=== PATIENT | female | born 1965 | race African-American/Black ===

== ENCOUNTER 2021-02-19 18:34 | Inpatient (IN) | payer MEDICARE ==
[~2021-02-19] VITALS: Ht 172.7 cm; Wt 98.9 kg
--- NOTE | 2021-02-19 19:11 | NUR ---
GPS: RECEIVED PT DIRECTLY FROM [facility] FROM [facility]. ADMITTED THROUGH THE SERVICE OF DR GONZALES AND MADE AWARE. PT ALERT AND ORIENTED X3-4. DENIES ANY PAIN OR DISCOMFORT. PT IS RELAX AND COOPERATIVE OF NOW. PT WEIGHS 218LBS AND 5'8'' IN HEIGHT. PT REQUESTING FOR HALDOL INJECTION FOR HER TO SLEEP TONIGHT. COVID TEST (-) NEGATIVE DATED 02/18/21 AT [place]. ON FULL CODE WITH ALLERGY TO AMOXICILLIN AND GLIPIZIDE. PT AMBULATORY AND CONTINENT.
[2021-02-19 20:00] VITALS: BP 148/70
[2021-02-19] MEDS ORDERED: TEMAZEPAM 7.5 MG CAPSULE PO PRN (20:15)
[2021-02-19] MEDS ORDERED: MAGNESIUM HYDROXIDE 30 ML LIQUID UDC PO PRN (20:15)
[2021-02-19] MEDS ORDERED: MAG HYDROX/AL HYDROX/SIMETH 30 ML LIQUID UDC PO PRN (20:15)
[2021-02-19] MEDS: LORAZEPAM 1 MG TABLET PO PRN (21:58)
[2021-02-20] MEDS ORDERED: INSU3INS6 SQ (03:13)
[2021-02-20] MEDS ORDERED: MELA3TAB41 PO (03:13)
[2021-02-20] MEDS ORDERED: MONT10TA22 PO (03:13)
[2021-02-20] MEDS ORDERED: METF-494 PO (03:13)
[2021-02-20] MEDS ORDERED: ATOR80TA PO (03:13)
[2021-02-20] MEDS ORDERED: OMEP20TA20 PO (03:13)
[2021-02-20] MEDS ORDERED: DIVA500T4 PO (03:13)
[2021-02-20] MEDS ORDERED: MEMA10TA PO (03:13)
[2021-02-20] MEDS ORDERED: LISI1TAB29 PO (03:13)
[2021-02-20] MEDS ORDERED: ARIP30TA3 PO (03:13)
[2021-02-20] MEDS ORDERED: LINA290C PO (03:13)
--- NOTE | 2021-02-20 06:24 | NUR ---
Pt awake at this time, no s/s of distress. No c/o pain. Cooperative with the admission process. Copy of the advisement and Patients' Rights Handbook provided. Safety precautions in place. Needs attended to in a timely manner. Son Carlos notified of pt's admission to GPS, acknowledged information.
[2021-02-20 07:30] VITALS: BP 117/40
--- NOTE | 2021-02-20 07:30 | NUR ---
recd patient asleep easily arousable to verbal stimuli, affect labile and mood dis organized. Denied any self harm and qany harm to to others. patient c/o feeling anxious by patient , Ativan 1mg po with some effect after 15 minutes. Patient dis shelved and poor insight . Oral intake qs and requesting in between meals snack. .
[2021-02-20] MEDS ORDERED: METF-440 PO (07:58)
[2021-02-20] MEDS ORDERED: METFORMIN HCL 500 MG TABLET PO SCH (09:00)
[2021-02-20 09:15] LABS: BILIRUBIN,TOTAL 0.2 mg/dL (0.2-1.0); CREATININE 0.7 mg/dL (0.6-1.3); TOTAL PROTEIN, SERUM 7.1 g/dL (6.4-8.2)
[2021-02-20] MEDS: METFORMIN HCL 500 MG TABLET PO SCH ×2 (09:59→17:07)
[2021-02-20] MEDS: MEMANTINE HCL 10 MG TABLET PO SCH ×2 (09:59→16:33)
[2021-02-20] MEDS: HYDROCHLOROTHIAZIDE 25 MG TABLET PO SCH (10:00)
[2021-02-20] MEDS: PANTOPRAZOLE SODIUM 40 MG TABLET.DR PO SCH (10:00)
[2021-02-20] MEDS: LISINOPRIL 20 MG TABLET PO SCH (10:01)
[2021-02-20] MEDS ORDERED: DEXTROSE 50% 50 ML DISP.SYRIN IV PRN (12:15)
[2021-02-20] MEDS: LORAZEPAM 1 MG TABLET PO PRN (13:15)
[2021-02-20 15:15] LABS: *BILIRUBIN,URIN NEGATIVE (NEGATIVE); *BLOOD, URINE NEGATIVE (NEGATIVE); *CLARITY,URINE CLEAR (CLEAR); *COLOR,URINE LIGHT YELLOW (YELLOW); *KETONES,URINE NEGATIVE (NEGATIVE); *UROBILINOGEN,URINE 0.2 E.U./dl (NORMAL); LEUKOCYTE ESTERASE ,URINE NEGATIVE (NEGATIVE); NITRITE, URINE NEGATIVE (NEGATIVE); UGLUCOSE TRACE (NEGATIVE)
[2021-02-20 15:30] LABS: BACTERIA,URINE FEW /HPF (NONE SEEN); RBC,URINE 0-3 /HPF (0-3); SQUAMOUS EPITHELIAL CELL,UR FEW /HPF (NONE SEEN); WBC,URINE 0-3 /HPF (0-3)
--- NOTE | 2021-02-20 15:48 | NUR ---
urine specmen collected and sent to lab
[2021-02-20 16:00] VITALS: BP 134/69
[2021-02-20] MEDS: BLOOD SUGAR DIAGNOSTIC 1 EACH STRIP VI SCH ×2 (16:31→21:17)
[2021-02-20] MEDS: INSULIN REGULAR, HUMAN 300 UNIT/3 ML VIAL SQ PRN ×2 (16:34→21:15)
[2021-02-20] MEDS: DIVALPROEX ER 500 MG TAB.SR.24H PO SCH (17:58)
[2021-02-20 20:00] VITALS: BP 145/69
[2021-02-20] MEDS: ATORVASTATIN 40 MG TABLET PO SCH (21:14)
[2021-02-20] MEDS: MONTELUKAST SODIUM 10 MG TABLET PO SCH (21:14)
[2021-02-20] MEDS: risperiDONE 2 MG TABLET PO SCH (21:14)
[2021-02-20] MEDS: INSULIN GLARGINE,HUM 300 UNITS/3 ML CARTRIDGE SQ SCH (21:16)
[2021-02-21] MEDS: ACETAMINOPHEN 325 MG TABLET PO PRN (05:21)
[2021-02-21] MEDS: PANTOPRAZOLE SODIUM 40 MG TABLET.DR PO SCH (06:44)
[2021-02-21] MEDS: BLOOD SUGAR DIAGNOSTIC 1 EACH STRIP VI SCH ×4 (06:44→21:09)
[2021-02-21 07:30] VITALS: BP 117/63
[2021-02-21] MEDS: METFORMIN HCL 500 MG TABLET PO SCH ×2 (09:19→17:49)
[2021-02-21] MEDS: DIVALPROEX ER 500 MG TAB.SR.24H PO SCH ×2 (09:19→17:49)
[2021-02-21] MEDS: risperiDONE 2 MG TABLET PO SCH ×2 (09:20→21:09)
[2021-02-21] MEDS: MEMANTINE HCL 10 MG TABLET PO SCH ×2 (09:20→17:50)
[2021-02-21] MEDS: LISINOPRIL 20 MG TABLET PO SCH (09:20)
[2021-02-21] MEDS: SERTRALINE HCL 50 MG TABLET PO SCH (09:20)
[2021-02-21] MEDS: HYDROCHLOROTHIAZIDE 25 MG TABLET PO SCH (09:22)
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
--- NOTE | 2021-02-21 11:12 | NUR ---
LUIZ Initial Discharge Plan: Pt currently resides at [address] [place] [address] ([phone]). LUIZ will continue to work with pt, family and MD to ensure a safe and proper discharge plan.
[2021-02-21] MEDS: INSULIN REGULAR, HUMAN 300 UNIT/3 ML VIAL SQ PRN ×2 (13:24→21:11)
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
[2021-02-21 16:31] VITALS: BP 148/71
--- NOTE | 2021-02-21 17:00 | NUR ---
Gps/Air Operations Manager- Had been quiet, redirectable, compliant with routine meds, safety reviewed, cooperative with staff .Patient was put to room 137-B earlier today awaiting results from Covid test , came out negative, patient was put back in previous room
[2021-02-21 20:00] VITALS: BP 135/53
[2021-02-21] MEDS: MONTELUKAST SODIUM 10 MG TABLET PO SCH (21:08)
[2021-02-21] MEDS: ATORVASTATIN 40 MG TABLET PO SCH (21:09)
[2021-02-21] MEDS: INSULIN GLARGINE,HUM 300 UNITS/3 ML CARTRIDGE SQ SCH (21:12)
[2021-02-22] MEDS: LORAZEPAM 1 MG TABLET PO PRN (00:16)
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
[2021-02-22] MEDS: PANTOPRAZOLE SODIUM 40 MG TABLET.DR PO SCH (06:54)
[2021-02-22] MEDS: BLOOD SUGAR DIAGNOSTIC 1 EACH STRIP VI SCH ×4 (06:55→20:14)
[2021-02-22 07:30] VITALS: BP_SYST 128; BP_SYST 154; BP_DIAS 68; BP_DIAS 78
[2021-02-22] MEDS: METFORMIN HCL 500 MG TABLET PO SCH ×2 (08:17→16:47)
[2021-02-22] MEDS: SERTRALINE HCL 50 MG TABLET PO SCH (08:18)
[2021-02-22] MEDS: risperiDONE 2 MG TABLET PO SCH ×2 (08:18→20:19)
[2021-02-22] MEDS: DIVALPROEX ER 500 MG TAB.SR.24H PO SCH ×2 (08:18→16:38)
[2021-02-22] MEDS: LISINOPRIL 20 MG TABLET PO SCH (08:19)
[2021-02-22] MEDS: MEMANTINE HCL 10 MG TABLET PO SCH ×2 (08:19→16:38)
[2021-02-22] MEDS: HYDROCHLOROTHIAZIDE 25 MG TABLET PO SCH (08:20)
[2021-02-22] MEDS: INSULIN REGULAR, HUMAN 300 UNIT/3 ML VIAL SQ PRN ×4 (08:24→20:21)
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
[2021-02-22 16:20] VITALS: BP 147/46
[2021-02-22 20:00] VITALS: BP 136/47
[2021-02-22] MEDS: INSULIN GLARGINE,HUM 300 UNITS/3 ML CARTRIDGE SQ SCH (20:18)
[2021-02-22] MEDS: ATORVASTATIN 40 MG TABLET PO SCH (20:19)
[2021-02-22] MEDS: MONTELUKAST SODIUM 10 MG TABLET PO SCH (20:19)
[2021-02-22] MEDS: MELATONIN 3 MG TABLET PO PRN (20:19)
[2021-02-23] MEDS: BLOOD SUGAR DIAGNOSTIC 1 EACH STRIP VI SCH ×4 (05:54→19:51)
[2021-02-23] MEDS: PANTOPRAZOLE SODIUM 40 MG TABLET.DR PO SCH (06:07)
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
[2021-02-23 08:10] VITALS: BP 124/50
[2021-02-23] MEDS: DIVALPROEX ER 500 MG TAB.SR.24H PO SCH ×2 (08:47→17:11)
[2021-02-23] MEDS: LORAZEPAM 1 MG TABLET PO PRN ×2 (08:47→20:29)
[2021-02-23] MEDS: METFORMIN HCL 500 MG TABLET PO SCH ×2 (08:47→17:11)
[2021-02-23] MEDS: LISINOPRIL 20 MG TABLET PO SCH (08:48)
[2021-02-23] MEDS: MEMANTINE HCL 10 MG TABLET PO SCH ×2 (08:48→17:12)
[2021-02-23] MEDS: SERTRALINE HCL 50 MG TABLET PO SCH (08:48)
[2021-02-23] MEDS: risperiDONE 2 MG TABLET PO SCH ×2 (08:48→20:28)
[2021-02-23] MEDS: HYDROCHLOROTHIAZIDE 25 MG TABLET PO SCH (09:35)
[2021-02-23] MEDS ORDERED: diphenhydrAMINE 50 MG/1 ML VIAL IM ONE (12:00)
[2021-02-23] MEDS ORDERED: LORAZEPAM 2 MG/1 ML VIAL IM ONE (12:00)
[2021-02-23] MEDS ORDERED: HALOPERIDOL LACTATE 5 MG/1 ML VIAL IM ONE (12:00)
[2021-02-23] MEDS: INSULIN REGULAR, HUMAN 300 UNIT/3 ML VIAL SQ PRN ×3 (12:24→19:54)
[2021-02-23 15:28] VITALS: BP 129/50
[2021-02-23 15:36] VITALS: BP 139/62
[2021-02-23 16:08] VITALS: BP 139/62
--- NOTE | 2021-02-23 19:03 | NUR ---
PATIENT REMAINS DELUSIONAL AND IMPAIRED THINKING, NEEDS MONITORING, sON CALLED AND ASKED THAT PATIENT NOT HAVE PHONE TO CALL THEM , THEY WILL CALL HER SON bety, CONTINUE TO MONITOR FOR SAFETY.
[2021-02-23] MEDS: INSULIN GLARGINE,HUM 300 UNITS/3 ML CARTRIDGE SQ SCH (19:52)
[2021-02-23 20:05] VITALS: BP 116/60
[2021-02-23] MEDS: MONTELUKAST SODIUM 10 MG TABLET PO SCH (20:28)
[2021-02-23] MEDS: ATORVASTATIN 40 MG TABLET PO SCH (20:28)
[2021-02-23] MEDS: MELATONIN 3 MG TABLET PO PRN (20:29)
[2021-02-23] MEDS: ACETAMINOPHEN 325 MG TABLET PO PRN (22:24)
[2021-02-24] MEDS: LORAZEPAM 1 MG TABLET PO PRN ×2 (05:06→20:14)
[2021-02-24] MEDS: PANTOPRAZOLE SODIUM 40 MG TABLET.DR PO SCH (06:07)
[2021-02-24] MEDS: BLOOD SUGAR DIAGNOSTIC 1 EACH STRIP VI SCH ×4 (06:08→20:09)
[2021-02-24 07:40] VITALS: BP 143/65
[2021-02-24] MEDS: DIVALPROEX ER 500 MG TAB.SR.24H PO SCH ×2 (08:20→16:41)
[2021-02-24] MEDS: METFORMIN HCL 500 MG TABLET PO SCH ×2 (08:21→17:00)
[2021-02-24] MEDS: SERTRALINE HCL 50 MG TABLET PO SCH (08:21)
[2021-02-24] MEDS: risperiDONE 2 MG TABLET PO SCH ×2 (08:22→20:15)
[2021-02-24] MEDS: LISINOPRIL 20 MG TABLET PO SCH (08:22)
[2021-02-24] MEDS: MEMANTINE HCL 10 MG TABLET PO SCH ×2 (08:23→16:41)
[2021-02-24] MEDS: HYDROCHLOROTHIAZIDE 25 MG TABLET PO SCH (08:23)
[2021-02-24] MEDS: INSULIN REGULAR, HUMAN 300 UNIT/3 ML VIAL SQ PRN ×4 (08:29→20:14)
--- NOTE | 2021-02-24 15:00 | NUR ---
Received patient sleeping in her room. A/O X 2 to person, place. Pt. affect is disorganized, labile, restless, demanding at times. Blood glucose is 255, 6 units of regular insulin given per sliding scale. Compliant with medications. Ambulates independently. Self care. Patient is encourage to verbalize concerns. Fall and safety precautions implemented.
[2021-02-24 16:10] VITALS: BP 142/67
--- NOTE | 2021-02-24 17:55 | NUR ---
Patient blood glucose is 151, 2 units of regular insulin given per sliding scale.
[2021-02-24] MEDS: ACETAMINOPHEN 325 MG TABLET PO PRN (18:35)
--- NOTE | 2021-02-24 18:38 | NUR ---
Patient is given Tylenol 650 mg at 18:36 for headache, will be monitored for effectiveness.
[2021-02-24 20:06] VITALS: BP 144/60
[2021-02-24] MEDS: INSULIN GLARGINE,HUM 300 UNITS/3 ML CARTRIDGE SQ SCH (20:12)
[2021-02-24] MEDS: ATORVASTATIN 40 MG TABLET PO SCH (20:14)
[2021-02-24] MEDS: MONTELUKAST SODIUM 10 MG TABLET PO SCH (20:14)
[2021-02-24] MEDS: MELATONIN 3 MG TABLET PO PRN (20:15)
--- NOTE | 2021-02-25 04:05 | NUR ---
GPS Note: Received patient at the start of the shift, wandering up and down the francis with a blank stare. This patient gets disoriented more and more as the night progress. However this patient has been calm with no signs of aggressive behavior noted . This chart writer educated and reinforced the need for diabetic diet compliance d/t the blood glucose trending on the elevated side. The patient continues to eat anything available and in large portions. During the night the patient came out into the hallway without any pants on. The bed was saturated with urine from an incontinent episode. Frequent rounding and reorientation provided throughout the shift. Safety Stratiges in place, no acute episodes or distress.
[2021-02-25] MEDS: BLOOD SUGAR DIAGNOSTIC 1 EACH STRIP VI SCH ×4 (05:34→21:07)
[2021-02-25] MEDS: PANTOPRAZOLE SODIUM 40 MG TABLET.DR PO SCH (05:34)
[2021-02-25 07:33] VITALS: BP 119/57
[2021-02-25] MEDS: DIVALPROEX ER 500 MG TAB.SR.24H PO SCH ×2 (08:09→16:46)
[2021-02-25] MEDS: LISINOPRIL 20 MG TABLET PO SCH (08:10)
[2021-02-25] MEDS: SERTRALINE HCL 50 MG TABLET PO SCH (08:10)
[2021-02-25] MEDS: MEMANTINE HCL 10 MG TABLET PO SCH ×2 (08:11→16:46)
[2021-02-25] MEDS: METFORMIN HCL 500 MG TABLET PO SCH ×2 (08:12→17:15)
[2021-02-25] MEDS: HYDROCHLOROTHIAZIDE 25 MG TABLET PO SCH (08:13)
[2021-02-25] MEDS: risperiDONE 2 MG TABLET PO SCH ×2 (08:24→20:58)
[2021-02-25] MEDS: INSULIN REGULAR, HUMAN 300 UNIT/3 ML VIAL SQ PRN ×4 (08:35→21:00)
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
--- NOTE | 2021-02-25 10:41 | NUR ---
Patient court hearing was held today at 10:30 am. Judge Angeles, patient's rights Shanda and Eleni were participants of the hearing. Audio Specialist approved to continue 14 days hold for this patient.
--- NOTE | 2021-02-25 15:20 | NUR ---
Received patient awake in her room. A/O X 2 to person, place. Pt. affect is withdrawn, calm, quiet, cooperative, depressed. Compliant with medications. Blood glucose 282, 6 units of regular insulin given per sliding scale. Ambulates independently. Emotional support provided. Fall and safety precautions implemented.
[2021-02-25 16:13] VITALS: BP 147/52
[2021-02-25 19:51] VITALS: BP 118/58
[2021-02-25] MEDS: MONTELUKAST SODIUM 10 MG TABLET PO SCH (20:56)
[2021-02-25] MEDS: ATORVASTATIN 40 MG TABLET PO SCH (20:56)
[2021-02-25] MEDS: INSULIN GLARGINE,HUM 300 UNITS/3 ML CARTRIDGE SQ SCH (21:02)
[2021-02-26] MEDS: PANTOPRAZOLE SODIUM 40 MG TABLET.DR PO SCH (06:48)
[2021-02-26] MEDS: BLOOD SUGAR DIAGNOSTIC 1 EACH STRIP VI SCH ×4 (06:52→20:56)
[2021-02-26 07:30] VITALS: BP 116/41
[2021-02-26] MEDS: DIVALPROEX ER 500 MG TAB.SR.24H PO SCH ×2 (08:45→16:40)
[2021-02-26] MEDS: METFORMIN HCL 500 MG TABLET PO SCH ×2 (08:45→17:04)
[2021-02-26] MEDS: risperiDONE 2 MG TABLET PO SCH ×2 (08:45→20:53)
[2021-02-26] MEDS: SERTRALINE HCL 50 MG TABLET PO SCH (08:47)
[2021-02-26] MEDS: MEMANTINE HCL 10 MG TABLET PO SCH ×2 (08:47→16:40)
[2021-02-26] MEDS: HYDROCHLOROTHIAZIDE 25 MG TABLET PO SCH (08:48)
[2021-02-26] MEDS: LISINOPRIL 20 MG TABLET PO SCH (08:49)
[2021-02-26] MEDS: INSULIN REGULAR, HUMAN 300 UNIT/3 ML VIAL SQ PRN ×3 (08:53→20:58)
[2021-02-26] MEDS: ACETAMINOPHEN 325 MG TABLET PO PRN (10:10)
--- NOTE | 2021-02-26 14:42 | NUR ---
Received patient awake in her room. A/O X 2 to person, place. Pt. affect is withdrawn, depressed, preoccupied, cooperative, fixated on being discharge home. Compliant with medications. Ambulates without assistance. Blood glucose is 255, 6 units of regular insulin given per sliding scale. Tylenol 650 mg is given at 14:24 for headache, effective. Self care. Patient is encourage to vent feelings and emotions. Fall and safety precautions implemented.
[2021-02-26 16:00] VITALS: BP 128/57
[2021-02-26] MEDS: NUTRISOURCE FIBER 4 GM PACKET PO SCH (17:48)
[2021-02-26 20:00] VITALS: BP 123/38
[2021-02-26] MEDS: ATORVASTATIN 40 MG TABLET PO SCH (20:53)
[2021-02-26] MEDS: MONTELUKAST SODIUM 10 MG TABLET PO SCH (20:54)
[2021-02-26] MEDS: INSULIN GLARGINE,HUM 300 UNITS/3 ML CARTRIDGE SQ SCH (20:59)
[2021-02-27] MEDS: LORAZEPAM 1 MG TABLET PO PRN (00:48)
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
[2021-02-27] MEDS: PANTOPRAZOLE SODIUM 40 MG TABLET.DR PO SCH (06:46)
[2021-02-27] MEDS: BLOOD SUGAR DIAGNOSTIC 1 EACH STRIP VI SCH ×4 (06:46→20:10)
--- NOTE | 2021-02-27 07:32 | NUR ---
patient slept for approx 3 hrs through the night. she continue fixed on calling her family in the middle of the night stating "there is an emergency. i need to talk to my son". However, patient is re directable. will continue to monitor.
[2021-02-27 07:45] VITALS: BP 129/66
[2021-02-27] MEDS: risperiDONE 2 MG TABLET PO SCH ×2 (08:12→20:16)
[2021-02-27] MEDS: DIVALPROEX ER 500 MG TAB.SR.24H PO SCH ×2 (08:14→16:38)
[2021-02-27] MEDS: MEMANTINE HCL 10 MG TABLET PO SCH ×2 (08:14→16:38)
[2021-02-27] MEDS: METFORMIN HCL 500 MG TABLET PO SCH ×2 (08:14→17:12)
[2021-02-27] MEDS: SERTRALINE HCL 50 MG TABLET PO SCH (08:15)
[2021-02-27] MEDS: LISINOPRIL 20 MG TABLET PO SCH (08:15)
[2021-02-27] MEDS: INSULIN REGULAR, HUMAN 300 UNIT/3 ML VIAL SQ PRN ×4 (08:19→20:25)
[2021-02-27] MEDS: HYDROCHLOROTHIAZIDE 25 MG TABLET PO SCH (08:20)
[2021-02-27] MEDS: NUTRISOURCE FIBER 4 GM PACKET PO SCH ×3 (09:00→16:39)
[2021-02-27 16:53] VITALS: BP 130/53
[2021-02-27 20:00] VITALS: BP 143/54
[2021-02-27] MEDS: MONTELUKAST SODIUM 10 MG TABLET PO SCH (20:16)
[2021-02-27] MEDS: MELATONIN 3 MG TABLET PO SCH (20:16)
[2021-02-27] MEDS: INSULIN GLARGINE,HUM 300 UNITS/3 ML CARTRIDGE SQ SCH (20:24)
[2021-02-27] MEDS: ATORVASTATIN 40 MG TABLET PO SCH (21:11)
--- NOTE | 2021-02-28 05:15 | NUR ---
Received patient in her room, calm, pleasant upon approach, semi fair insight and semi fair judgement. Patient is med compliant. Patient will remain in a psych facility for further evaluation and treatment.
[2021-02-28] MEDS: PANTOPRAZOLE SODIUM 40 MG TABLET.DR PO SCH (06:13)
[2021-02-28] MEDS: BLOOD SUGAR DIAGNOSTIC 1 EACH STRIP VI SCH ×4 (06:41→20:23)
--- NOTE | 2021-02-28 07:30 | NUR ---
rec d patient alert and oriented times two in room with flat affect and calm mood., patient denies S I OR HARM TO ANOTHER PERSON. ASSISTED NEEDED WITH ADLS AND COMFORT.
[2021-02-28 07:39] VITALS: BP 141/56
[2021-02-28] MEDS: METFORMIN HCL 500 MG TABLET PO SCH ×2 (09:23→17:31)
[2021-02-28] MEDS: risperiDONE 2 MG TABLET PO SCH ×2 (09:24→20:25)
[2021-02-28] MEDS: SERTRALINE HCL 50 MG TABLET PO SCH (09:26)
[2021-02-28] MEDS: MEMANTINE HCL 10 MG TABLET PO SCH ×2 (09:27→17:17)
[2021-02-28] MEDS: DIVALPROEX ER 500 MG TAB.SR.24H PO SCH ×2 (09:27→17:17)
[2021-02-28] MEDS: HYDROCHLOROTHIAZIDE 25 MG TABLET PO SCH (09:28)
[2021-02-28] MEDS: LISINOPRIL 20 MG TABLET PO SCH (09:29)
[2021-02-28] MEDS: NUTRISOURCE FIBER 4 GM PACKET PO SCH ×3 (09:30→17:18)
--- NOTE | 2021-02-28 11:47 | NUR ---
SW Discharge Update: LUIZ arranged transportation through pt's insurance ([phone]) with number that was provided by pt's her Skip ([phone]) who is aware and agreeable with the confirmation. LUIZ spoke to [place] who confirmed transportation at 1pm for pt from [facility] to [address] [place] [address]. Confirmation number:[id number]
[2021-02-28] MEDS: INSULIN REGULAR, HUMAN 300 UNIT/3 ML VIAL SQ PRN ×3 (12:33→20:27)
--- NOTE | 2021-02-28 15:10 | NUR ---
LUIZ APS Contact Update: LUIZ contacted APS ([phone]) and spoke with KEN to notify APS that the pt will be discharged home on 03/01/21. KEN directed LUIZ to speak to the assigned SW for pt's case named Shirlene ([phone]). LUIZ contacted Shirlene and left a voicemail for a call back to confirm that the pt will be returning home.
[2021-02-28 16:00] VITALS: BP 144/51
--- NOTE | 2021-02-28 18:10 | NUR ---
patient had a fair day no outbursts or hostile behaviors, continue to provide amonitored environment.
[2021-02-28 19:57] VITALS: BP 140/46
[2021-02-28] MEDS: INSULIN GLARGINE,HUM 300 UNITS/3 ML CARTRIDGE SQ SCH (20:24)
[2021-02-28] MEDS: ATORVASTATIN 40 MG TABLET PO SCH (20:25)
[2021-02-28] MEDS: MONTELUKAST SODIUM 10 MG TABLET PO SCH (20:25)
[2021-02-28] MEDS: MELATONIN 3 MG TABLET PO SCH (20:25)
[2021-02-28] MEDS: LORAZEPAM 1 MG TABLET PO PRN (20:25)
[2021-03-01] MEDS: PANTOPRAZOLE SODIUM 40 MG TABLET.DR PO SCH (05:37)
[2021-03-01] MEDS: BLOOD SUGAR DIAGNOSTIC 1 EACH STRIP VI SCH ×2 (05:37→12:34)
[2021-03-01] MEDS: NUTRISOURCE FIBER 4 GM PACKET PO SCH ×2 (09:00→12:35)
--- NOTE | 2021-03-01 09:01 | NUR ---
LUIZ Discharge Note: Pt will be discharged to Home via insurance transportation at 1PM. LUIZ spoke with Andrea who helped arrange the transportation through pts insurance ([phone]). Pts Skip ([phone]) is aware and agreeable with the discharge plan. Skip is ready for the patients return home today. Pt is aware and agreeable with discharge plans. Pt is alert and oriented x4, is unable to plan for self-care at this time; however, pt will be returning home under the care of her family. Pt denies any suicidal or homicidal ideation. Pt will follow-up with her therapist and LUIZ included additional mental health clinics for the pt in her chart and a copy will be given to the pt.
[2021-03-01] MEDS: MEMANTINE HCL 10 MG TABLET PO SCH (09:10)
[2021-03-01] MEDS: SERTRALINE HCL 50 MG TABLET PO SCH (09:10)
[2021-03-01 09:12] VITALS: BP 138/64
[2021-03-01] MEDS: HYDROCHLOROTHIAZIDE 25 MG TABLET PO SCH (09:12)
[2021-03-01] MEDS: METFORMIN HCL 500 MG TABLET PO SCH (09:12)
[2021-03-01] MEDS: LISINOPRIL 20 MG TABLET PO SCH (09:12)
[2021-03-01] MEDS: DIVALPROEX ER 500 MG TAB.SR.24H PO SCH (09:27)
[2021-03-01] MEDS: risperiDONE 2 MG TABLET PO SCH (09:28)
[2021-03-01] MEDS: INSULIN REGULAR, HUMAN 300 UNIT/3 ML VIAL SQ PRN (09:38)
--- NOTE | 2021-03-01 11:00 | NUR ---
Gps/Freight Solicitor- Spoked to patient's son Carlos , preferred [facility] in [place], [place] [phone] ) [address]
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
--- NOTE | 2021-03-01 12:04 | NUR ---
Gps/Health Plan Manager- Called [facility] [address] [place] [address] ( [phone] )Prescriptions was called as ordered from Dr Natalie Vyas (Psychiatrist) as well as Enrrique Bowden NP (Television Anchor) , spoked to Aminata (Pharmacist)
--- NOTE | 2021-03-01 13:39 | NUR ---
Gps/Rose Grading Supervisor- Reviewed discharge instructions, safety emphasized, followup with her therapist and Primary Doctor emphasized, , reviewed prescriptions/medications, was informed the need to picker tender RX at [facility] in [address] in [place] , informed talked to Aminata (Pharmacist) Patient in good spirit , all belongings was given back to patient . Patient transported by Augustine (Field Administrative Assistant ) as arranged by [facility] . Discharged in good spirit with no new complaints noted. Denires H.I no S.I noted
== END 2021-03-01 13:45 | disposition home or self-care (01) | DRG 885 ==
LOC: GPS 18:34 → EDBD 18:34 → GPS 02-20 00:41
PROVIDERS: ADMIT Psychiatry & Neurology Psychiatry; ATTEND Registered Nurse
DX: F25.0 Schizoaffective disorder, bipolar type (principal); E11.65 Type 2 diabetes mellitus with hyperglycemia; Z86.16 Personal history of COVID-19; R45.850 Homicidal ideations; E66.9 Obesity, unspecified; I10 Essential (primary) hypertension; J45.20 Mild intermittent asthma, uncomplicated; Z20.822 Contact with and (suspected) exposure to COVID-19; Z87.01 Personal history of pneumonia (recurrent); F41.9 Anxiety disorder, unspecified; G47.00 Insomnia, unspecified; K21.9 Gastro-esophageal reflux disease without esophagitis; N32.81 Overactive bladder; Z68.33 Body mass index [BMI] 33.0-33.9, adult; F29 Unspecified psychosis not due to a substance or known physiological condition
CPT/HCPCS: 36415; 80164; A4663; J1200; J1630; J1815; J2060